=== PATIENT | male | born 1945 | race Caucasian/White ===

== ENCOUNTER 2019-10-16 07:32 | Day surgery (SDC) | payer OTHER ==
[~2019-10-16] VITALS: Ht 182.9 cm; Wt 124.0 kg
[~2019-10-16 07:32] MED LIST: ALLO300 PO; AMLO5 PO; ASPI81CH PO; LOSA25 PO; OMEP20ER PO; TAMS.4ER PO; Viagra100 MG PO
--- NOTE | 2019-10-16 12:51 | NUR ---
DISCHARGE PT AMBULATED TO RESTROOM WITH NO COMLICATIONS. PT SELF DRESSED WITH NO COMPLICATIONS. PT AOX4, DENIES ANY PAIN. PT AND STATE THEIR UNDERSTANDING OF DISCHARGE AND SITE CARE MANAGEMENT INSTRUCTIONS. BOTH DENY ANY QUESTIONS OR CONCERNS. TR BAND COMPLETELY REMOVED AND CLEANED. CLOTH DOT DRESSING APPLIED AND WHITE ARM BOARD REVERSED AND PLACED BACK ON ARM. PT SENT HOME WITH A SLING. VSS. IV DCD WITH CATH INTACT. PT WHEELED TO FRONT WHERE WAS WAITING WITH VEHICLE.
== END 2019-10-16 12:45 | disposition home or self-care (01) ==
LOC: MHTC 07:32
DX: I42.0 Dilated cardiomyopathy (principal); I34.0 Nonrheumatic mitral (valve) insufficiency; I11.9 Hypertensive heart disease without heart failure; I44.7 Left bundle-branch block, unspecified; R00.1 Bradycardia, unspecified; E66.01 Morbid (severe) obesity due to excess calories; M10.9 Gout, unspecified; K21.9 Gastro-esophageal reflux disease without esophagitis; Z79.899 Other long term (current) drug therapy; Z87.891 Personal history of nicotine dependence; I42.9 Cardiomyopathy, unspecified; Z79.82 Long term (current) use of aspirin
CPT/HCPCS: 93460; 99152; C1769; C1894; J1644; J2250; J3010; J7030; Q9967

== ENCOUNTER 2020-01-15 09:59 | Day surgery (SDC) | payer OTHER ==
[~2020-01-15] VITALS: Ht 182.9 cm; Wt 125.0 kg
--- NOTE | 2020-01-15 11:15 | NUR ---
DELAY IS PROCEDURE. MESSAGE LEFT FOR .
--- NOTE | 2020-01-15 12:15 | NUR ---
DR. RUIZ HERE TO SEE PATIENT. 24 HOUR H&PUPDATE SIGNED.
--- NOTE | 2020-01-15 20:45 | NUR ---
ASSUMED CARE PT ARRIVED TO ROOM AOX4 IN HOSP BED. PT ASKING TO STAND AND USE RR. PT DENIES DIZZINESS OR LIGHTHEADEDNESS. PT ALLOWED TO STAND AND WALK TO RR W/ 2 RN SBA. PT STEADY ON FEET AND TOLERATING WELL. NEW PACEMAKER SITE TO L CHEST WALL. DRESSING IN PLACE C/D/I. PT DENIES PAIN TO AREA. PT VERY HARD OF HEARING DOES NOT HAVE HEARING AIDS IN. VSS. SATS >92% ON RA. CALL LIGHT IN REACH.
--- NOTE | 2020-01-16 05:37 | NUR ---
SHIFT SUMMARY PT SLEEPING IN ROOM COMFORTABLY AT THIS TIME. NO ACUTE CHANGES IN STATUS T/O NIGHT. PT SLEPT WELL. DENIED ANY CP OR SOB. RESP EVEN UNLABORED ON RA W/ SATS >92%. PACER SITE WNL PRESSURE DRESSING IN PLACE. DENIED OTHER NEEDS, CALL LIGHT IN REACH.
--- NOTE | 2020-01-16 13:57 | NUR ---
SHIFT SUMMARY/DISCHARGE NOTE CARE ASSUMED, ASSESSMENT COMPLETED. PT ORIENTED, PLEASANT AND COOPERATIVE, INDEPENDENT IN ROOM, VSS. TELE SHOWS 100% PACED RHYTHM, PT DENIES CP/PRESSURE AND SOB, DENIES DISCOMFORT. DRESSING TO L CHEST WALL CDI, PT AWARE OF AND COMPLIANT WITH L ARM RESTRICTIONS. ECHO AND CXR COMPLETED, DR. RUIZ AWARE OF RESULTS, AT BEDSIDE AND CHANGED DRESSING, INCISION WITHOUT S/SX INFECTION NOTED. LAST DOSE OF ANCEF ADMINISTERED PER ORDERS, IV DC'D WITH TIP INTACT, PRESSURE DRESSING APPLIED. PT GIVEN DC INSTRUCTIONS, VERBALIZES UNDERSTANDING. DC TO HOME AT 1145 WITH DC INSTRUCTIONS, RX, PACER INFO, BELONGINGS AND OWN MEDICATIONS. GAIT STEADY UPON DISCHARGE, PT ACCOMPANIED TO PARKING LOT BY STAFF MEMBER AND GIVEN A RIDE HOME BY A FAMILY MEMBER.
== END 2020-01-16 11:55 | disposition home or self-care (01) ==
LOC: MHTC 09:59 → PCU 20:18 → MHTC 01-16 11:55 → PCU 01-16 11:55
DX: I44.7 Left bundle-branch block, unspecified (principal); R00.1 Bradycardia, unspecified; E66.9 Obesity, unspecified; K21.9 Gastro-esophageal reflux disease without esophagitis; I12.9 Hypertensive chronic kidney disease with stage 1 through stage 4 chronic kidney disease, or unspecified chronic kidney disease; N18.9 Chronic kidney disease, unspecified; I25.5 Ischemic cardiomyopathy; Z87.891 Personal history of nicotine dependence; Z79.899 Other long term (current) drug therapy; Z79.82 Long term (current) use of aspirin
CPT/HCPCS: 33208; 33225; 71046; 76937; 99152; 99153; A9270-GY; C1769; C1785; C1887; C1894; C1898; J0690; J1644; J2250; J3010; J7030; J7040; Q9967